=== PATIENT | female | born 1985 | race Caucasian/White ===

== ENCOUNTER → 2019-01-14 | Emergency (ER) | payer SELFPAY ==
[~2019-01-14] MED LIST: KETOROLAC 30 MG/ML VIAL IVP ONE; LIDOCAINE 2% VISC SLN 15ML UDC PO ONE; MAG HYD/AL HYD/SIMETH 30ML UDC PO ONE; NS(*) 0.9% 1000 ML BAG 1,000 ML IV ONE; ONDANSETRON 4 MG/2 ML VIAL IVP ONE
--- NOTE | 2019-01-14 19:43 | ER Report ---
History and Physical Time Seen By MD: 19:39 Depart Departure Condition: Stable Disposition: HOME OR SELF-CARE SWAPNIL SETHI [employer] Jan 14, 2019 19:43
[2019-01-14 19:46] VITALS: BP 117/81
--- NOTE | 2019-01-14 19:47 | ER Report ---
History and Physical Time Seen By MD: 19:40 HPI/ROS CHIEF COMPLAINT: Epigastric pain HISTORY OF PRESENT ILLNESS: 33-year-old female presents ambulatory to the ER complaining of epigastric pain for several days. She states she was seen several months ago for similar pain. She had extensive evaluation. She was placed in medicine, which reduced her acid in her symptoms resolved. She ran out of the medicine. She notes no fever or chills. She notes no vomiting or diarrhea. She notes severe nausea and epigastric pain 7/10. She notes no alleviating or exacerbating factors. She denies history of abdominal surgery. REVIEW OF SYSTEMS: Respiratory: No cough, no dyspnea. Cardiovascular: No chest pain, no palpitations. Gastrointestinal: As above Musculoskeletal: No back pain. Allergies: Coded Allergies: No Known Drug Allergies (Unverified , 01/14/19) Home Meds No Active Prescriptions or Reported Meds Reviewed Nurses Notes: Yes Old Medical Records Reviewed: Yes Constitutional Vital Sign - Last 24 Hours 01/14/19 19:46 Temp 97.7 Pulse 88 Resp 12 B/P (MAP) 117/81 Pulse Ox 95 O2 Delivery Room Air Physical Exam Vital signs stable, afebrile, pulse ox normal General Appearance: The patient is alert, has no immediate need for airway protection and no current signs of toxicity. Mild distress Eyes: Pupils equal and round no injection. Respiratory: Chest is non tender, lungs are clear to auscultation. Cardiac: regular rate and rhythm Gastrointestinal: Abdomen is soft mild epigastric tenderness no masses, bowel sounds normal. Musculoskeletal: Neck: Neck is supple and non tender. Extremities have full range of motion and are non tender. Skin: No rashes or lesions. DIFFERENTIAL DIAGNOSIS: After history and physical exam differential diagnosis was considered for abdominal pain including but not limited to appendicitis, cholecystitis, gastritis and urinary tract infection. Medical Decision Making Data Points Laboratory Urinalysis Test 01/14/19 19:38 Urine Color Yellow Urine Clarity Cloudy Urine pH 6.0 pH (4.8-9.5) Urine Specific [place] 1.026 Urine Protein Negative mg/dL (NEGATIVE) Urine Glucose (UA) Negative mg/dL (NEGATIVE) Urine Ketones Negative mg/dL (NEGATIVE) Urine Blood Negative (NEGATIVE) Urine Nitrite Negative (NEGATIVE) Urine Bilirubin Negative (NEGATIVE) Urine Urobilinogen 2.0 mg/dL (0.2-1.9) Urine Leukocyte Esterase Small (NEGATIVE) Urine RBC 2 /HPF (0-2/HPF) Urine WBC 8 /HPF (0-5/HPF) Urine Squamous Epithelial Cells Many /LPF (</=FEW) Urine Bacteria Few /HPF (NONE-FEW) Urine Hyaline Casts Few /LPF (NONE-FEW) Urine Mucus Few /HPF (NONE-FEW) ED Course/Re-evaluation Clinical Indication for ER IV: Hydration, IV Access ED Course Patient was admitted to an examination room. H&P was done. The differential diagnoses was considered. Diagnostic evaluation was ordered. Patient became upset requesting medicine for her symptoms. She subsequently left without completion of care. Decision to Disposition Date: Jan 14, 2019 Decision to Disposition Time: 20:13 Depart Departure Latest Vital Signs Vital Signs Date Time Temp Pulse Resp B/P (MAP) Pulse Ox O2 Delivery O2 Flow Rate FiO2 01/14/19 19:46 97.7 88 12 117/81 95 Room Air Impression: Primary Impression: Abdominal pain Condition: Condition Unchanged Disposition: AGAINST MED ADV / DISCONT CARE New Scripts No Active Prescriptions or Reported Meds Problem Qualifiers Primary Impression: Abdominal pain Abdominal location: epigastric Qualified Codes: R10.13 - Epigastric pain HIMANSHU ANDINO DO Jan 14, 2019 19:47
== END ==
LOC: ER 20:16
DX: R10.13 Epigastric pain (principal)
CPT/HCPCS: 81001; 99282